=== PATIENT | female | born 1985 | race Caucasian/White ===

== ENCOUNTER 2018-01-04 11:02 | Emergency (ER) | payer OTHER ==
[~2018-01-04] VITALS: Ht 170.2 cm; Wt 121.6 kg
[2018-01-04 11:15] VITALS: Ht 170.2 cm; Wt 121.6 kg
[2018-01-04 12:26] VITALS: BP 154/85
== END 2018-01-04 12:26 | disposition home or self-care (01) ==
LOC: ED 11:02
DX: H10.89 Other conjunctivitis (principal); B34.9 Viral infection, unspecified

== ENCOUNTER 2018-09-02 17:42 | Emergency (ER) | payer OTHER ==
[~2018-09-02] VITALS: Ht 167.6 cm; Wt 113.4 kg
[2018-09-02 18:10] VITALS: Ht 167.6 cm; Wt 113.4 kg
[2018-09-02 20:38] VITALS: BP 121/72
== END 2018-09-02 20:38 | disposition home or self-care (01) ==
LOC: ED 17:42
DX: B34.9 Viral infection, unspecified (principal)